=== PATIENT | female | born 1965 | race African-American/Black ===

== ENCOUNTER 2018-01-21 05:36 | Emergency (ER) | payer OTHER ==
[~2018-01-21] VITALS: Ht 160 cm; Wt 90.7 kg
[2018-01-21] MEDS ORDERED: NORCO 5-325 TA1 EACH ORAL (05:52)
[2018-01-21] MEDS ORDERED: AMOXICILLIN500 MG ORAL (05:52)
[2018-01-21] MEDS ORDERED: Norco 5mg/325mg tab ORAL ONE (06:00)
[2018-01-21 06:09] VITALS: BP 154/95
--- NOTE | 2018-01-23 13:04 | Emergency Room Report ---
History of Present Illness General Chief Complaint: Toothache Source: Patient Present Illness HPI 52-year-old female presents ED for evaluation. Patient presenting with tooth pain. Started last night. Patient states she was told by a dentist 2 weeks ago that she needed a extraction however was referred to a specialist. Specialists is unable to see her until next month. She states she was prescribed pain medications and antibiotics at the time but states that she ran out of medication and the pain has returned. Pain is throbbing, 10 out of 10, nonradiating. Denies fevers or chills. Denies neck stiffness. Denies nausea or vomiting. Denies any discharge. No other aggravating or relieving factors. Denies any other associated symptoms Allergies: Coded Allergies: No Known Allergies (Unverified , 01/21/18) Patient History Past Medical History: none Past Surgical History: none Pertinent Family History: none Social History: Denies: smoking, alcohol use, drug use Now: No : 1 Para: 1 Immunizations: UTD Reviewed Nursing Documentation: PMH: Agreed; PSxH: Agreed Nursing Documentation-PMH Past Medical History: No Stated History Review of Systems All Other Systems: negative except mentioned in HPI Physical Exam Vital Signs Date Time Temp Pulse Resp B/P (MAP) Pulse Ox O2 Delivery O2 Flow Rate FiO2 01/21/18 05:41 97.4 83 14 154/95 98 Room Air 97.3 Sp02 EP Interpretation: reviewed, normal General Appearance: no apparent distress, alert, GCS 15, non-toxic Head: normocephalic Eyes: bilateral eye normal inspection, bilateral eye PERRL ENT: other - multiple dental caries, localized to L lower molar. no fluctuance. no abscess Neck: full range of motion, supple/symm/no masses Respiratory: normal inspection Cardiovascular #1: normal inspection Gastrointestinal: normal inspection Rectal: deferred Genitourinary: no CVA tenderness Musculoskeletal: normal inspection Neurologic: alert, oriented x3, responsive, motor strength/tone normal, sensory intact, speech normal Psychiatric: normal inspection Skin: normal inspection Lymphatic: normal inspection Medical Decision Making Diagnostic Impression: Primary Impression: Toothache ER Course 52-year-old female presents ED complaining of tooth pain. Cracked tooth, dental abscess, cavity Patient placed on stretcher. After initial history, physical exam reveals a middle aged female in mild distress. The tooth in question signficant cavity. No surrounding abscess. No induration or swelling. Given [place] in ED with pain improved. Diagnosis-toothache Stable and discharged to home prescription for [place] and amoxicillin. Instructed to see dentist as a walk-in this week. Return to ED if symptoms recur or worse Last Vital Signs Date Time Temp Pulse Resp B/P (MAP) Pulse Ox O2 Delivery O2 Flow Rate FiO2 01/21/18 06:09 83 14 154/95 98 Room Air 01/21/18 06:06 97.4 Status: improved Disposition: HOME, SELF-CARE Condition: Stable Scripts Hydrocodone Bit/Acetaminophen 5-325* (NORCO 5-325*) 1 Each Tablet 1 TAB ORAL Q6H PRN for For Pain, #20 TAB 0 Refills Prov: TANA PINA M.D. 01/21/18 Amoxicillin* (AMOXIL*) 500 Mg Capsule 500 MG ORAL THREE TIMES A DAY, #21 CAP Prov: TANA PINA M.D. 01/21/18 Referrals: [facility],REFERRING (PCP) Patient Instructions: Dental Pain TANA PINA M.D. Jan 23, 2018 13:04
== END 2018-01-21 06:05 | disposition home or self-care (01) ==
LOC: EMR 05:55
DX: K08.89 Other specified disorders of teeth and supporting structures (principal)
CPT/HCPCS: 99282

== ENCOUNTER 2018-03-24 13:54 | Emergency (ER) | payer BC, OTHER ==
[~2018-03-24] VITALS: Ht 160 cm; Wt 86.2 kg
[~2018-03-24 13:54] MED LIST: AMOXICILLIN500 MG ORAL; NORCO 5-325 TA1 EACH ORAL
[2018-03-24] MEDS ORDERED: VENTOLIN HFA18 GM INH (14:07)
[2018-03-24 14:13] VITALS: BP 147/97
--- NOTE | 2018-03-24 14:25 | Emergency Room Report ---
History of Present Illness General Chief Complaint: General Complaint Source: Patient Present Illness HPI 52-year-old female patient presents to ER for cough and congestion for the past week. Patient reports history of allergies. Patient reports history of asthma , reports ran out of medication, reports he is loss of inhaler today, denies shortness of breath or asthma related symptoms. patient requesting refill of asthma medication.. Denies fever, hemoptysis, coughing up sputum. Patient reports taking Aleve for relief of symptoms. Patient reports feelings of chest tightness secondary to the cough symptoms. Patient reports other acute symptoms at this time. Allergies: Coded Allergies: No Known Allergies (Unverified , 01/21/18) Patient History Past Medical History: see triage record Last Menstrual Period: Post Reviewed Nursing Documentation: PMH: Agreed; PSxH: Agreed Nursing Documentation-PMH Past Medical History: No History, Except For Hx Asthma: Yes Review of Systems All Other Systems: negative except mentioned in HPI Physical Exam Vital Signs Date Time Temp Pulse Resp B/P (MAP) Pulse Ox O2 Delivery O2 Flow Rate FiO2 03/24/18 14:03 98.1 85 19 147/97 96 Room Air 98.1 Sp02 EP Interpretation: reviewed, normal General Appearance: well appearing, no apparent distress, alert, GCS 15, non- toxic Head: normocephalic, atraumatic, other - nno tenderness to palpation of maxillary or frontal sinuses bilaterally Eyes: bilateral eye normal inspection, bilateral eye PERRL ENT: hearing grossly normal, normal pharynx, no angioedema, normal voice, TMs + canals normal, uvula midline, moist mucus membranes, nasal congestion Neck: full range of motion Respiratory: lungs clear, no rhonchi, no respiratory distress, no accessory muscle use, no wheezing, rhonchi, speaking full sentences, other - no stridor Cardiovascular #1: normal inspection Musculoskeletal: back normal, digits/nails normal, gait/station normal, normal range of motion, non-tender Neurologic: alert, oriented x3, responsive, motor strength/tone normal, sensory intact Psychiatric: mood/affect normal Medical Decision Making PA Attestation Dr. Colón is my supervising Physician whom patient management has been discussed with. Diagnostic Impression: Primary Impression: Cough Additional Impressions: Nasal congestion History of asthma ER Course Pt presents to ED c/o cough and congestion. DDX considered but are not limited to asthma, viral URI, pneumonia, bronchitis. VITAL SIGNS are WNL, patient is afebrile. Ordered breathing treatment, imaging, and medication. ER COURSE CXR negative for acute disease. On physical exam, no audible wheezing or crackles, mild rhonchi appreciated, will order x-ray to rule out pneumonia. patient denies difficulty breathing, due to history of asthma will provide patient with breathing treatment in ER at this time. Oxygen saturation within normal limits Do not believe patient requires antibiotics at this time. Albuterol/Atrovent breathing treatment provided. Following treatment patient rhonci still audible, no wheezes or crackles, rhonchi likely secondary to congestion. Patient denies SOB or difficulty breathing, patient talking without difficulty. Informed patient on etiology of cough, likely relation to congestion symptoms. follow-up with primary care provider for further diagnosis and treatment. Patient is resting comfortably in no acute distress. Will provide patient with refill of asthma medication. DISCHARGE: -Rx given for Sudafed -Rx provided for Albuterol MDI. -Rx provided for Albuterol nebulized At this time pt is stable for d/c to home. Patient is resting comfortably in no acute distress, nontoxic appearing, able to answer questions without difficulty. Patient to take medications as instructed Will provide with patient care instructions and any necessary prescriptions. Care plan and follow-up instructions provided. Patient instructed to follow-up with primary care provider in 3 - 5 days. Patient questions asked and answered. Patient reports understanding and agreement to treatment plan. ER precautions given. Patient instructed to return to ER immediately for any new or worsening of symptoms including but not limited to increasing SOB, persistent fever. - Please note that this Emergency Department Report was dictated using Talk[employer]external relations manager technology software, occasionally this can lead to erroneous entry secondary to interpretation by the dictation equipment. Chest X-Ray Diagnostic Results Chest X-Ray Diagnostic Results : Chest X-Ray Ordered: Yes # of Views/Limited/Complete: 1 View Indication: Chest Pain EP Interpretation: Yes PA Xray: Interpretation reviewed, by supervising MD, and agrees with findings. Interpretation: no consolidation, no effusion, no pneumothorax, no acute cardiopulmonary disease Impression: No acute disease LUIZA [place] Text Scotty Roque PA-C Last Vital Signs Date Time Temp Pulse Resp B/P (MAP) Pulse Ox O2 Delivery O2 Flow Rate FiO2 03/24/18 14:03 98.1 85 19 147/97 96 Room Air 98.1 Status: improved Disposition: HOME, SELF-CARE Condition: Stable Scripts Albuterol Sulfate* (ALBUTEROL SULFATE MDI*) 8.5 Gm Hfa.aer.ad 2 PUFF INH Q6H, #1 INH 0 Refills Prov: Jeremías Roque 03/24/18 Albuterol Sulfate* (ALBUTEROL SULFATE HHN*) 2.5 Mg/3 Ml Vial.neb 3 ML INH Q6H PRN for Shortness of Breath, #30 EA 0 Refills Prov: Jeremías Roque 03/24/18 D-Methorphan/PE/Acetaminophen (Sudafed PE Pressure+Pain+Cough) 1 Each Tablet 1 EACH PO BID, #24 TAB Prov: Jeremías Roque 03/24/18 Patient Instructions: Allergies, [id number], Asthma, Adult, Qfsg-fn-[id number], Cough, Adult, [id number] Additional Instructions: Followup with primary care provider in 3 -5 days. discuss further referral and treatment as needed. Take medications as directed. Patient questions asked and answered. ER precautions given, patient instructed to return to ER immediately for any new or worsening of symptoms. Jeremías Roque March 24, 2018 14:25
[2018-03-24] MEDS ORDERED: ALBUTEROL2.5 MG/3 M INH (15:13)
[2018-03-24] MEDS ORDERED: SUDAFED PE PRE1 EACH PO (15:13)
[2018-03-24] MEDS ORDERED: ALBUTEROL SULF8.5 GM INH (15:13)
[2018-03-24] MEDS ORDERED: Albuterol/Ipratropium 3ml neb HHN ONE (15:15)
[2018-03-24 16:44] VITALS: BP 138/80
--- NOTE | 2018-03-24 17:24 | Diagnostic Imaging Report ---
Indication: Chest pain Technique: One view of the chest Comparison: none Findings: Lungs and pleural spaces are clear. Heart size is normal Impression: No acute process
== END 2018-03-24 16:50 | disposition home or self-care (01) ==
LOC: EMR 16:45
DX: R05 Cough (principal); R09.81 Nasal congestion; J45.909 Unspecified asthma, uncomplicated
CPT/HCPCS: 71045; 94640; 94664; 99284; J7620

== ENCOUNTER 2019-04-20 21:11 | Emergency (ER) | payer OTHER ==
[~2019-04-20] VITALS: Ht 160 cm; Wt 88.5 kg
[~2019-04-20 21:11] MED LIST changes: +ALBUTEROL SULF8.5 GM INH; +ALBUTEROL2.5 MG/3 M INH; +SUDAFED PE PRE1 EACH PO; +VENTOLIN HFA18 GM INH
[2019-04-20 21:33] VITALS: BP 157/100
--- NOTE | 2019-04-20 21:58 | Emergency Room Report ---
History of Present Illness General Chief Complaint: Chest Pain Source: Patient Present Illness HPI Is a 53-year-old female with no past medical history. She presents with chief complaint of chest pain. This has been on and off for several days. She said that she get these fleeting pressure-like pain lasting seconds. No fever chills but no nausea or vomiting. No exertional component. Never had this problem before. Does have history of anxiety regarding flying and heights. Just got back from [place]. Allergies: Coded Allergies: No Known Allergies (Unverified , 01/21/18) Patient History Past Medical History: see triage record, old chart reviewed Past Surgical History: none Pertinent Family History: none Social History: Denies: smoking Last Menstrual Period: Stop 2 years ago Now: No Immunizations: other Reviewed Nursing Documentation: PMH: Agreed; PSxH: Agreed Nursing Documentation-PMH Hx Asthma: Yes History Of Psychiatric Problem: Yes - anxiety Review of Systems Eye: Denies: eye pain, blurred vision ENT: Denies: ear pain, nose congestion, throat swelling Respiratory: Denies: cough, shortness of breath Cardiovascular: Reports: chest pain; Denies: palpitations Gastrointestinal: Denies: abdominal pain, diarrhea, nausea, vomiting Musculoskeletal: Denies: back pain, joint pain Skin: Denies: rash Neurological: Denies: headache, numbness Endocrine: Denies: increased thirst, increased urine Hematologic/Lymphatic: Denies: easy bruising All Other Systems: negative except mentioned in HPI Physical Exam Vital Signs Date Time Temp Pulse Resp B/P (MAP) Pulse Ox O2 Delivery O2 Flow Rate FiO2 04/20/19 21:18 98.4 88 20 157/100 (119) 98 Room Air Vitals with high blood pressure Sp02 EP Interpretation: reviewed, normal General Appearance: well appearing, no apparent distress, alert Head: normocephalic, atraumatic Eyes: bilateral eye PERRL, bilateral eye EOMI ENT: hearing grossly normal, normal pharynx Neck: full range of motion, supple, no meningismus Respiratory: chest non-tender, lungs clear, normal breath sounds Cardiovascular #1: regular rate, rhythm, no murmur Gastrointestinal: normal bowel sounds, non tender, no mass, no organomegaly, no bruit, non-distended Musculoskeletal: back normal, gait/station normal, normal range of motion Psychiatric: mood/affect normal Skin: warm/dry Medical Decision Making Diagnostic Impression: Primary Impression: Chest pain Qualified Codes: R07.9 - Chest pain, unspecified ER Course Patient with an atypical chest pain. Most likely anxiety. states she has a lot of stressors. No evidence of ACS, PE, dissection to name a few. EKG Diagnostic Results Rate: normal Rhythm: NSR ST Segments: no acute changes Rhythm Strip Diag. Results EP Interpretation: yes Rate: 72 Rhythm: NSR, no PVC's, no ectopy Chest X-Ray Diagnostic Results Chest X-Ray Diagnostic Results : Chest X-Ray Ordered: Yes # of Views/Limited/Complete: 1 View Indication: Chest Pain EP Interpretation: Yes Interpretation: no consolidation, no effusion, no pneumothorax, no acute cardiopulmonary disease Impression: No acute disease Electronically Signed by: Suleman Moraes MD Last Vital Signs Date Time Temp Pulse Resp B/P (MAP) Pulse Ox O2 Delivery O2 Flow Rate FiO2 04/20/19 21:33 98.4 72 20 157/100 98 Room Air Status: improved Disposition: HOME, SELF-CARE Condition: Stable Patient Instructions: Nonspecific Chest Pain Additional Instructions: Follow-up with in 7 days. Return if worse. Suleman Moraes MD Apr 20, 2019 21:58
[2019-04-20] MEDS ORDERED: Aspirin Baby 81mg ORAL ONE (22:00)
[2019-04-20 22:12] LABS: BASOPHILS % (AUTO) 1.4 % (0.0-2.0); EOSINOPHILS % (AUTO) 3.9 % (0.0-3.0); HEMATOCRIT 38.6 % (37.0-47.0); HEMOGLOBIN 13.3 G/DL (12.0-16.0); LYMPHOCYTES % (AUTO) 35.6 % (20.0-45.0); MEAN CORPUSCULAR VOLUME 87 FL (80-99); MONOCYTES % (AUTO) 10.4 % (1.0-10.0); NEUTROPHILS % (AUTO) 48.8 % (45.0-75.0); PLATELET COUNT 283 K/UL (150-450); RED BLOOD COUNT 4.41 M/UL (4.20-5.40); WHITE BLOOD COUNT 7.1 K/UL (4.8-10.8)
[2019-04-20 22:22] LABS: ANION GAP 8 mmol/L (5-15); BLOOD UREA NITROGEN 7 mg/dL (7-18); CALCIUM 9.1 MG/DL (8.5-10.1); CARBON DIOXIDE 31 MMOL/L (21-32); CHLORIDE 103 MMOL/L (98-107); CREATININE 0.9 MG/DL (0.55-1.30); POTASSIUM 3.3 MMOL/L (3.5-5.1); SODIUM 142 MMOL/L (136-145)
[2019-04-20 22:52] LABS: ALANINE AMINOTRANSFERASE 20 U/L (12-78); ALBUMIN 3.7 G/DL (3.4-5.0); ALBUMIN/GLOBULIN RATIO 1.3 (1.0-2.7); ALKALINE PHOSPHATASE 101 U/L (46-116); ASPARTATE AMINO TRANSFERASE 8 U/L (15-37); BILIRUBIN,TOTAL 0.2 MG/DL (0.2-1.0); CKMB 0.6 NG/ML (0.0-3.6); CREATINE KINASE 102 U/L (26-308)
[2019-04-20 23:06] VITALS: BP 135/82
--- NOTE | 2019-04-21 10:29 | Diagnostic Imaging Report ---
Indication: Chest pain Technique: One view of the chest Comparison: 03/24/2018 Findings: Lungs and pleural spaces are clear. Heart size is normal. No significant interim change Impression: No acute process
--- NOTE | 2019-04-22 19:17 | Cardiology Report ---
APPROVED REPORT EKG Measurement Heart [id number] Normal sinus rhythm with sinus arrhythmia Normal ECG
== END 2019-04-20 23:06 | disposition home or self-care (01) ==
LOC: EMR 21:36
DX: R07.9 Chest pain, unspecified (principal); F41.9 Anxiety disorder, unspecified
CPT/HCPCS: 36415; 71045; 80053; 82550; 82553; 84484; 85025; 93005; 99283